=== PATIENT | female | born 1990 | race Caucasian/White ===

== ENCOUNTER 2018-04-04 03:24 | Emergency (ER) | payer MEDICAID, OTHER ==
[~2018-04-04] VITALS: Ht 165.1 cm; Wt 70.5 kg
[~2018-04-04 03:24] MED LIST: NOCURR
[2018-04-04 04:43] VITALS: BP 124/80
[2018-04-04] MEDS ORDERED: IBUPROFEN 600 MG TABLET PO ONE (04:45)
[2018-04-04] MEDS ORDERED: PENICILLIN V POTASSIUM 500 MG TABLET PO ONE (04:45)
[2018-04-04] MEDS ORDERED: DEXAMETHASONE SOD PHOS 4 MG/ML 5 ML VIAL IM ONE (05:00)
== END 2018-04-04 05:34 | disposition home or self-care (01) ==
LOC: EMS 03:25
DX: J02.0 Streptococcal pharyngitis (principal); F12.10 Cannabis abuse, uncomplicated
CPT/HCPCS: 87430; 96372; 99283; J1100